=== PATIENT | male | born 2000 | race Caucasian/White ===

== ENCOUNTER 2020-01-20 23:02 | Emergency (ER) | payer BC, MEDICAID ==
[2020-01-21 00:01] VITALS: BP 123/65; PULSE 60
[2020-01-21] MEDS ORDERED: Proparacaine 0.5% Ophth Soln 15 ML Bottle EYEBOTH STA (00:14)
--- NOTE | 2020-01-21 00:39 | EDM.PDOC ---
ED HPI GENERAL MEDICAL PROBLEM - General Chief Complaint: Eye Problems Stated Complaint: RIGHT EYE, FOREIGN OBJECT/SAWDUST Time Seen by Provider: 01/21/20 00:14 Source of Information: Reports: Patient, RN Notes Reviewed History Limitations: Reports: No Limitations - History of Present Illness INITIAL COMMENTS - FREE TEXT/NARRATIVE: 19-year-old gentleman presents emergency department today with a concern for foreign body in his right eye he was wearing safety glasses he injured himself at work his eye has been tearing excessively and he is having pain in that eye no complaints of change in vision Right Eye Pain Score (Numeric/FACES): 7 - Related Data Allergies Allergy/AdvReac Type Severity Reaction Status Date / Time No Known Allergies Allergy Verified 01/21/20 00:00 Home Meds: Home Meds NK [No Known Home Meds] 05/31/16 [History] Past Medical History Musculoskeletal History: Reports: Fracture - Past Surgical History Musculoskeletal Surgical History: Reports: Shoulder Surgery Social & Family History - Family History Family Medical History: Noncontributory - Tobacco Use Smoking Status *Q: Never Smoker - Caffeine Use Caffeine Use: Reports: None Caffeine Use Comment: occassional use - Recreational Drug Use Recreational Drug Use: Yes Drug Use in Last 12 Months: Yes Recreational Drug Type: Reports: Marijuana/Hashish Recreational Drug Use Frequency: Weekly ED ROS GENERAL - Review of Systems Review Of Systems: See Below Constitutional: Reports: No Symptoms HEENT: Reports: Eye Discharge, Eye Pain ED EXAM GENERAL W FULL EYE - Physical Exam Exam: See Below Exam Limited By: No Limitations General Appearance: Alert, WD/WN, No Apparent Distress Eye Exam: Right Eye: Conjunctival Injection, Corneal Abrasion, Bilateral Eye: EOMI, Normal Inspection, PERRL Visual Acuity (R) 20/: 40 Visual Acuity (L) 20/: 30 With Correction: No Eyelids: Bilateral: Normal Appearance Conjunctiva & Sclera: Right: Conjunctival Edema, Left: Normal Appearance Cornea Exam: Right: Corneal Abrasion Extraocular Movements: Bilateral: Intact Pupillary Size: Bilateral: 4 mm Pupillary Reaction: Bilateral: Brisk Anterior Chamber: Bilateral: Normal Appearance Course - Vital Signs Last Recorded V/S: Last Vital Signs Temp 97.8 F 01/21/20 00:03 Pulse 60 01/21/20 00:03 Resp 16 01/21/20 00:03 BP 123/65 01/21/20 00:03 Pulse Ox 98 01/21/20 00:03 - Orders/Labs/Meds Meds: Medications Discontinued Medications Generic Name Dose Route Start Last Admin Trade Name [place] PRN Reason Stop Dose Admin Proparacaine HCl 1 ml 01/21/20 00:14 01/21/20 00:19 Proparacaine 0.5% Ophth Soln EYEBOTH 01/21/20 00:15 1 ml NOW STA Administration Departure - Departure Time of Disposition: 00:38 Disposition: Home, Self-Care 01 Condition: Fair Clinical Impression: Injury of conjunctiva and corneal abrasion of right eye without foreign body Qualifiers: Encounter type: initial encounter Qualified Code(s): S05.01XA - Injury of conjunctiva and corneal abrasion without foreign body, right eye, initial encounter - Discharge Information Instructions: Corneal Abrasion Referrals: PCP,None [Primary Care Provider] - Additional Instructions: Continue to use the antibiotics until reevaluated by your eye care provider on Thursday call or return to the emergency department worsening of symptoms Sepsis Event Note - Evaluation Sepsis Screening Result: No Definite Risk - Focused Exam Vital Signs: Vital Signs Temp Pulse Resp BP Pulse Ox 01/21/20 00:03 97.8 F 60 16 123/65 98 01/21/20 00:00 97.8 F 60 16 123/65 98 Date Exam was Performed: 01/21/20 Time Exam was Performed: 00:35 - Assessment/Plan Plan: Assessment Acuity = acute Site and laterality = corneal abrasion right eye Etiology = unknown probable foreign body Manifestations = none Location of injury = work Lab values = none Plan The eye was flushed with copious amounts of saline, he is placed on gentamicin ophthalmic drops have him follow-up with eye care provider on Thursday Tylenol and Motrin as needed for pain control This note was dictated using Cued voice recognition software please call with any questions on syntax or grammar.
== END 2020-01-21 00:45 | disposition home or self-care (01) ==
LOC: JP.ED 23:02
DX: S05.01XA Injury of conjunctiva and corneal abrasion without foreign body, right eye, initial encounter (principal); X58.XXXA Exposure to other specified factors, initial encounter; Y99.0 Civilian activity done for income or pay
CPT/HCPCS: 99283; A9270